=== PATIENT | male | born 1975 | race African-American/Black ===

== ENCOUNTER → 2022-02-24 | Outpatient (CLI) | payer BC ==
[2022-02-24 16:13] LABS: BUN/CREATININE RATIO 19 (0-10)
== END ==
LOC: CT 14:47
PROVIDERS: Nurse Practitioner Family
DX: D33.4 Benign neoplasm of spinal cord (principal); E11.9 Type 2 diabetes mellitus without complications; M50.31 Other cervical disc degeneration, high cervical region
CPT/HCPCS: 36415; 80048; Q9967